=== PATIENT | female | born 1980 | race Caucasian/White ===

== ENCOUNTER 2016-09-26 13:02 | Emergency (ER) | payer OTHER ==
[~2016-09-26] VITALS: Ht 154.9 cm; Wt 94.9 kg
[~2016-09-26 13:02] MED LIST: CEPH500C PO
[2016-09-26 13:09] VITALS: TEMP 36.9; Ht 154.9 cm; Wt 94.9 kg
[2016-09-26] MEDS ORDERED: LISI10TA PO (13:53)
[2016-09-26] MEDS ORDERED: ASPI81TA28 PO (13:53)
[2016-09-26] MEDS ORDERED: SERT25TA PO (13:53)
[2016-09-26] MEDS ORDERED: SODIUM CHLORIDE 0.9% 500ML 500 ML IV STA (14:16)
[2016-09-26 14:26] LABS: BASO % 0.3 %; BASO ABS # 0.02 K/uL (0-0.2); COMPLETE YES; EOS % 3.5 %; HEMATOCRIT 43.1 % (37-47); IG% 0.1 %; LYMPH % 27.5 %; LYMPH ABS # 2.13 K/uL (1.2-3.4); MEAN CELL VOLUME 90.9 fL (80-100); MEAN CORPUSCULAR HEMOGLOBIN 31.9 pg (25-34); MEAN PLATELET VOLUME 12.7 fL (7.4-10.4); MONO % 7.1 %; NEUT % 61.5 %; PLATELET COUNT 220 K/uL (130-400); RED BLOOD COUNT 4.74 M/uL (4.2-5.4); WHITE BLOOD COUNT 7.75 K/uL (4.8-10.8)
[2016-09-26 14:32] LABS: ALT/SGPT 28 U/L (12-78); AST/SGOT 21 U/L (15-37); BLOOD UREA NITROGEN 13 mg/dl (7-18); BUN/CREATININE RATIO 15.1 (10-20); CALCIUM 8.5 mg/dl (8.5-10.1); CARBON DIOXIDE 22 mmol/L (21-32); CHLORIDE 107 mmol/L (98-107); CREATININE 0.86 mg/dl (0.60-1.20); GLUCOSE 82 mg/dl (70-99); POTASSIUM 4.6 mmol/L (3.5-5.1); SODIUM 141 mmol/L (136-145)
[2016-09-26 14:37] LABS: ALKALINE PHOSPHATASE 87 U/L (45-117)
--- NOTE | 2016-09-26 14:51 | DIAGNOSTIC IMAGING REPORT ---
HEAD CT NONCONTRAST CT DOSE: 537.48 mGy.cm HISTORY: EVALUATE WEAKNESS TECHNIQUE: Multiaxial CT images of the head were performed without the use of intravenous contrast. Automated exposure control was utilized for this study. Comparison: None. Findings: Trace fluid within the left sphenoid sinus. The remaining paranasal sinuses and mastoid air cells are clear. The calvarium and skull base are intact. The ventricles and sulci are within normal limits. There is no mass, hematoma, midline shift, or acute infarct. Impression: No acute intracranial abnormality. Electronically signed by: Jorge Rodriguez M.D. 09/26/2016 2:49 PM Dictated Date/Time: 09/26/2016 2:39 PM
[2016-09-26 14:52] LABS: URINE APPEARANCE CLEAR (CLEAR); URINE BILIRUBIN NEG (NEG); URINE COLOR YELLOW; URINE NITRITE NEG (NEG); URINE PH 5.5 (4.5-7.5); URINE SPECIFIC GRAVITY 1.018 (1.000-1.030); UROBILINOGEN NEG (NEG)
--- NOTE | 2016-09-26 14:55 | DIAGNOSTIC IMAGING REPORT ---
CHEST ONE VIEW PORTABLE HISTORY: Dizziness. EVALUATE WEAKNESS COMPARISON: None. FINDINGS: The lungs are clear. Cardiac silhouette is normal in size. No pleural effusions. No pneumothorax. Old, healed right anterior first and second rib fractures. IMPRESSION: No acute process. Electronically signed by: Jorge Rodriguez M.D. 09/26/2016 2:53 PM Dictated Date/Time: 09/26/2016 2:52 PM
[2016-09-26 15:05] LABS: MANUAL MICROSCOPIC REQUIRED? NO; REVIEW REQ? NO
[2016-09-26 15:49] VITALS: BP 142/93; PULSE 76; O2SAT 99
--- NOTE | 2016-09-26 20:53 | EMERGENCY ROOM VISIT NOTE ---
History Report prepared by Caroline: Brigette King Under the Supervision of: Dr. Ad Gonzalez D.O. First contact with patient: 13:49 Chief Complaint: DIZZY Stated Complaint: DIZZY, HIGH BLOOD PRESSURE Nursing Triage Summary: pt reports dizziness X 1 month, started on lisinopril 2 weeks ago and dizziness remains , intermittent R side cp and sob with and without exertion History of Present Illness The patient is a 36 year old female who presents to the Emergency Room with complaints of intermittent dizziness beginning 1 month ago. She notes one month ago she began to feel dizzy and notes her vision started to become blurry. She went to acute care in [place] and her blood pressure was noted to be high. She was instructed to take her blood pressure every day for the next five days and report back. She states each time, her blood pressure was high after resting for 20 minutes before measuring, noting that it was around 189/105 for some time. She went back to the acute care in [place] and was put on Lisinopril 10 mg per day. She has been on Lisinopril for 2 to 3 weeks now, and she notes her symptoms are getting worse. She admits to having a loss of appetite, vomiting when she eats, difficulty sleeping, sporadic dizziness, lightheadedness, nausea, and an occasional headache. She denies any fever, ringing in her ears, rhinorrhea, cough, sore throat, chest pain, shortness of breath, weakness in her arms, abdominal pain, or pain or burning during urination. The patient notes she is usually better when she is sitting and resting. She felt fine yesterday, but after sitting and resting after dinner, she began to feel dizzy and as if the room was spinning. She takes Zoloft and baby Aspirin. She notes the dizziness comes and goes but is more prominent with changes in position. It does completely resolve with rest. She denies any ringing in your ears. Source of History: patient Onset: 1 month ago Position: other (global) Quality: other (dizziness) Timing: intermittent Modifying Factors (Relieving): rest Associated Symptoms: + headache, + nausea, + vomiting, No abdominal pain, No chest pain, No cough, No fevers, No sorethroat, No urinary symptoms, No weakness Note: The patient notes having a loss of appetite, difficulty sleeping, and lightheadedness. The patient denies having ringing in her ears, and rhinorrhea. Review of Systems See HPI for pertinent positives & negatives. A total of 10 systems reviewed and were otherwise negative. Past Medical & Surgical Medical Problems: (1) History of hypertension Family History Diabetes mellitus Hypertension Social History Smoking Status: Current Every Day Smoker Smokeless Tobacco Use: Yes Alcohol Use: occasionally Housing Status: lives with significant other Current/Historical Medications Scheduled Aspirin (Aspirin Ec), 81 MG PO DAILY Lisinopril (Prinivil), 10 MG PO DAILY Sertraline (Zoloft), 25 MG PO DAILY Allergies Coded Allergies: No Known Allergies (Unverified , OTHER, 09/26/16) Physical Exam Vital Signs Date Time Temp Pulse Resp B/P Pulse Ox O2 Delivery O2 Flow Rate FiO2 09/26/16 15:49 76 18 142/93 99 Room Air 09/26/16 14:31 75 18 131/87 99 Room Air 09/26/16 13:38 73 124/90 80 150/105 94 137/100 09/26/16 13:22 78 09/26/16 13:09 36.9 80 18 151/108 97 Room Air Physical Exam GENERAL: Sitting up in bed, alert, well appearing, well nourished, no distress, non-toxic EYE EXAM: normal conjunctiva, PERRL and EOM's intact. Slight lag of the left eye (old per patient). OROPHARYNX: no exudate, no erythema, lips, buccal mucosa, and tongue normal and mucous membranes are moist EARS: TMs clear bilaterally. NECK: supple, no nuchal rigidity, no adenopathy, non-tender LUNGS: Clear to auscultation. Normal chest wall mechanics HEART: no murmurs, S1 normal and S2 normal ABDOMEN: abdomen soft, non-tender, normo-active bowel sounds, no masses, no rebound or guarding. BACK: Back is symmetrical on inspection and there is no deformity, no midline tenderness, no CVA tenderness. SKIN: no rashes and no bruising UPPER EXTREMITIES: upper extremities are grossly normal. LOWER EXTREMITIES: No pitting edema. NEURO EXAM: Normal sensorium, normal speech. No drift. Finger to nose intact. Gross sensation intact. Rapid alternating movements of upper extremities intact. Medical Decision & Procedures ER Provider Diagnostic Interpretation: Xray results per the radiologist and my interpretation. Other results have been interpreted by the radiologist and reviewed by me. HEAD CT NONCONTRAST Findings: Trace fluid within the left sphenoid sinus. The remaining paranasal sinuses and mastoid air cells are clear. The calvarium and skull base are intact. The ventricles and sulci are within normal limits. There is no mass, hematoma, midline shift, or acute infarct. Impression: No acute intracranial abnormality. Electronically signed by: Jorge Rodriguez M.D. 09/26/2016 2:49 PM Dictated Date/Time: 09/26/2016 2:39 PM CHEST ONE VIEW PORTABLE FINDINGS: The lungs are clear. Cardiac silhouette is normal in size. No pleural effusions. No pneumothorax. Old, healed right anterior first and second rib fractures. IMPRESSION: No acute process. Electronically signed by: Jorge Rodriguez M.D. 09/26/2016 2:53 PM Dictated Date/Time: 09/26/2016 2:52 PM Laboratory Results 09/26/16 13:40 Red Blood Count 4.74, Mean Corpuscular Volume 90.9, Mean Corpuscular Hemoglobin 31.9, Mean Corpuscular Hemoglobin Concent 35.0, Mean Platelet Volume 12.7, Neutrophils (%) (Auto) 61.5, Lymphocytes (%) (Auto) 27.5, Monocytes (%) (Auto) 7.1, Eosinophils (%) (Auto) 3.5, Basophils (%) (Auto) 0.3, Neutrophils # (Auto) 4.77, Lymphocytes # (Auto) 2.13, Monocytes # (Auto) 0.55, Eosinophils # (Auto) 0.27, Basophils # (Auto) 0.02 09/26/16 13:40 Test 09/26/16 13:40 09/26/16 14:21 White Blood Count 7.75 K/uL (4.8-10.8) Red Blood Count 4.74 M/uL (4.2-5.4) Hemoglobin 15.1 g/dL (12.0-16.0) Hematocrit 43.1 % (37-47) Mean Corpuscular Volume 90.9 fL (80-100) Mean Corpuscular Hemoglobin 31.9 pg (25-34) Mean Corpuscular Hemoglobin Concent 35.0 g/dl (32-36) Platelet Count 220 K/uL (130-400) Mean Platelet Volume 12.7 fL (7.4-10.4) Neutrophils (%) (Auto) 61.5 % Lymphocytes (%) (Auto) 27.5 % Monocytes (%) (Auto) 7.1 % Eosinophils (%) (Auto) 3.5 % Basophils (%) (Auto) 0.3 % Neutrophils # (Auto) 4.77 K/uL (1.4-6.5) Lymphocytes # (Auto) 2.13 K/uL (1.2-3.4) Monocytes # (Auto) 0.55 K/uL (0.11-0.59) Eosinophils # (Auto) 0.27 K/uL (0-0.5) Basophils # (Auto) 0.02 K/uL (0-0.2) RDW Standard Deviation 42.8 fL (36.4-46.3) RDW Coefficient of Variation 12.9 % (11.5-14.5) Immature Granulocyte % (Auto) 0.1 % Immature Granulocyte # (Auto) 0.01 K/uL (0.00-0.02) Urine Color YELLOW Urine Appearance CLEAR (CLEAR) Urine pH 5.5 (4.5-7.5) Urine Specific [place] 1.018 (1.000-1.030) Urine Protein NEG (NEG) Urine Glucose (UA) NEG (NEG) Urine Ketones NEG (NEG) Urine Occult Blood NEG (NEG) Urine Nitrite NEG (NEG) Urine Bilirubin NEG (NEG) Urine Urobilinogen NEG (NEG) Urine Leukocyte Esterase NEG (NEG) Anion Gap 12.0 mmol/L (3-11) Est Creatinine Clear Calc Drug Dose 96.0 ml/min Estimated GFR () 101.4 Estimated GFR (Non- 87.5 BUN/Creatinine Ratio 15.1 (10-20) Calcium Level 8.5 mg/dl (8.5-10.1) Total Bilirubin 0.2 mg/dl (0.2-1) Direct Bilirubin < 0.1 mg/dl (0-0.2) Aspartate Amino Transf (AST/SGOT) 21 U/L (15-37) Alanine Aminotransferase (ALT/SGPT) 28 U/L (12-78) Alkaline Phosphatase 87 U/L (45-117) Troponin I < 0.015 ng/ml (0-0.045) Total Protein 7.4 gm/dl (6.4-8.2) Albumin 3.9 gm/dl (3.4-5.0) Bedside Glucose 94 mg/dl (70-90) Laboratory results per my review. Medications Administered Medications (Trade) Dose Ordered Sig/[place] Route Start Time Stop Time Status Last Admin Dose Admin Sodium Chloride (Nss 500ml) 500 ml @ 999 mls/hr Q31M STAT IV 09/26/16 14:16 09/26/16 14:46 DC 09/26/16 14:16 999 MLS/HR ECG Indication: other (dizzy) Rate (beats per minute): 73 Rhythm: sinus rhythm Findings: other (normal axis; normal interval) ED Course ED COURSE: Vital signs were reviewed and showed hypertensive. The patients medical record was reviewed The above diagnostic studies were performed and reviewed. ED treatments and interventions as stated above. 1407: The patient was evaluated in room C7. A complete history and physical examination was performed. 1416: Ordered NSS 500 ml @ 999 mls/hr IV. 1600: Upon reevaluation, the patient is hemodynamically stable.I discussed my findings with the patient and she understands and agrees with the treatment plan. Based on the patients age, coexisting illnesses, exam and lab findings the decision to treat as an outpatient was made. The patient remained stable while under my care. The patient appeared well at the time of discharge. Medical Decision Differential Diagnosis includes but is not limited to dehydration, stroke, anemia, hypoglycemia, hyponatremia, hypernatremia, urinary tract infection, pneumonia, bronchitis, sepsis, gastroenteritis, additional abdominal pathology, metabolic abnormalities and infections. Patient is a 36-year-old female that presents the ER for weakness and high blood pressure. She also complains of intermittent dizziness as well which is worse with changing positions. Patient is completely neurologically intact on exam. CT head was negative. Labs show no significant a leukocytosis or anemia. BMP along with LFTs, bilirubin and lipase was unremarkable. Troponin was negative. She has no chest pain. UA was negative. Patient is currently following with her PCP for her hypertension. Blood pressures were systolically in the 130s to 140s. There is no cerebellar signs. I do not believe that her her dizziness is related to her hypertension. Patient no complaints while at bedside. She was discharged follow-up with her PCP. Discussed with Pt concerning signs and symptoms to watch out for. Pt was instructed to follow up with their PCP and discussed with the patient their option to return to the ED at anytime for persistent or worsening symptoms. The appropriate anticipatory guidance and out-patient management, including indications for return to the emergency department, were explained at length to the patient and understood. Impression Primary Impression: Dizzy Additional Impressions: Weak HTN (hypertension) Scribe Attestation The scribe's documentation has been prepared under my direction and personally reviewed by me in its entirety. I confirm that the note above accurately reflects all work, treatment, procedures, and medical decision making performed by me. Departure Information Dispostion Home / Self-Care Referrals Leigh Ann Hidalgo PA-C (PCP) Patient Instructions ED Dizziness UKO, ED HTN Established, My [facility] Additional Instructions Please follow up with your primary care doctor with in the next 24 hours. Any worsening of your symptoms, please return to the ED immediately. This includes fevers greater than 100.4, weakness or numbness in arms or legs, change in vision, difficulty ambulating, or any other concerning signs or symptoms from your standpoint. Please follow up with your primary care doctor in regards to your high blood pressure. Problem Qualifiers Additional Impressions: HTN (hypertension) Hypertension type: unspecified secondary hypertension Qualified Codes: I15.9 - Secondary hypertension, unspecified
== END 2016-09-26 16:09 | disposition home or self-care (01) ==
LOC: C.EDB 13:03 → C.EDC 16:09
DX: I10 Essential (primary) hypertension (principal); R42 Dizziness and giddiness; F17.200 Nicotine dependence, unspecified, uncomplicated; Z79.82 Long term (current) use of aspirin; Z79.899 Other long term (current) drug therapy; Z83.3 Family history of diabetes mellitus; Z82.49 Family history of ischemic heart disease and other diseases of the circulatory system

== ENCOUNTER 2018-04-18 14:18 | Emergency (ER) | payer OTHER ==
[~2018-04-18] VITALS: Ht 162.6 cm; Wt 101.4 kg
[~2018-04-18 14:18] MED LIST changes: +ASPI81TA28 PO; -CEPH500C PO; +LISI10TA PO; +SERT25TA PO
[2018-04-18 14:23] VITALS: TEMP 37; Ht 162.6 cm; Wt 101.4 kg
[2018-04-18 14:30] VITALS: O2SAT 100
[2018-04-18] MEDS ORDERED: MECLIZINE HCL 25 MG TAB PO STA (15:11)
[2018-04-18] MEDS ORDERED: SODIUM CHLORIDE 0.9% 1000ML 1,000 ML IV STA (15:11)
[2018-04-18 15:36] LABS: BASO % 0.2 %; BASO ABS # 0.02 K/uL (0-0.2); HEMATOCRIT 40.6 % (37-47); HEMOGLOBIN 13.9 g/dL (12.0-16.0); IG# 0.03 K/uL (0.00-0.02); LYMPH % 17.6 %; LYMPH ABS # 1.76 K/uL (1.2-3.4); MEAN CELL VOLUME 94.6 fL (80-100); MEAN CORPUSCULAR HEMOGLOBIN 32.4 pg (25-34); MEAN CORPUSCULAR HGB CONC 34.2 g/dl (32-36); MEAN PLATELET VOLUME 12.7 fL (7.4-10.4); NEUT % 73.9 %; NEUT ABS # 7.38 K/uL (1.4-6.5); PLATELET COUNT 194 K/uL (130-400); RED CELL DISTRIBUTION WIDTH CV 12.9 % (11.5-14.5); RED CELL DISTRIBUTION WIDTH SD 44.1 fL (36.4-46.3); WHITE BLOOD COUNT 9.99 K/uL (4.8-10.8)
[2018-04-18 15:48] LABS: PTT PATIENT 25.7 SECONDS (21.0-31.0)
--- NOTE | 2018-04-18 15:54 | DIAGNOSTIC IMAGING REPORT ---
HEAD WITHOUT CONTRAST (CT) CT DOSE: 710.65 mGycm HISTORY: Mental status change EVALUATE ALTERED MENTAL STATUS/WEAKNESS TECHNIQUE: Multiaxial CT images of the head were performed without the use of intravenous contrast. A dose lowering technique was utilized adhering to the principles of ALARA. Comparison: 09/26/2016 Findings: The paranasal sinuses and mastoid air cells are clear. The calvarium and skull base are intact. The ventricles and sulci are within normal limits. There is no mass, hematoma, midline shift, or acute infarct. Impression: No acute intracranial abnormality. The above report was generated using voice recognition software. It may contain grammatical, syntax or spelling errors. Electronically signed by: Hamilton Bejarano M.D. 04/18/2018 3:52 PM Dictated Date/Time: 04/18/2018 3:50 PM
[2018-04-18 16:04] LABS: ALBUMIN 3.6 gm/dl (3.4-5.0); ALKALINE PHOSPHATASE 83 U/L (45-117); ALT/SGPT 37 U/L (12-78); AST/SGOT 30 U/L (15-37); BLOOD UREA NITROGEN 12 mg/dl (7-18); CALCIUM 8.5 mg/dl (8.5-10.1); CARBON DIOXIDE 23 mmol/L (21-32); CREATININE 0.68 mg/dl (0.60-1.20); GLUCOSE 93 mg/dl (70-99); PHOSPHORUS 2.8 mg/dl (2.5-4.9); POTASSIUM 4.4 mmol/L (3.5-5.1); SODIUM 138 mmol/L (136-145); TOTAL PROTEIN 7.1 gm/dl (6.4-8.2)
[2018-04-18] MEDS ORDERED: LISI-725 PO (16:31)
[2018-04-18] MEDS ORDERED: SERT50TA PO (16:31)
[2018-04-18 16:41] VITALS: BP 152/93; PULSE 70; O2SAT 99
[2018-04-18] MEDS ORDERED: MECL1TAB42 PO (16:45)
--- NOTE | 2018-04-18 22:28 | EMERGENCY ROOM VISIT NOTE ---
History First contact with patient: 14:50 (Von Laguna PA) First contact with patient: 16:19 (Josue Jarrett M.D.) Chief Complaint: SYNCOPE (NEAR SYNCOPE) Stated Complaint: DIZZINESS/NEAR SYNCOPE/VERTIGO Nursing Triage Summary: pt arrives via ALS from Work per ALS pt had a near syncope episode at work pt reports she was talking to an insurance company, she states she felt like she was slurring her words pt reports she was dizzy and light headed and the room began to spin she reports the sensation comes and goes, "I feel drunk, but I'm not." (Von Laguna PA) History of Present Illness The patient is a 38 year old female who presents to the Emergency Room with complaints of sudden onset of dizzy/vertigo symptoms at work today. 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 The patient reports that she was talking to an insurance company on the phone when she felt like she suddenly started to slur her words. Shortly thereafter, she reported that the room started to spin on her. She became lightheaded and nauseated. She did not notice any change in vision. The patient was concerned that she may pass out, so she laid down on the floor. The windsmith reports that her speech was normal, but looked flush. The windsmith checked her pulse and reported that it was normal. The patient reports that her symptoms did improve while laying on the ground. When she attempted to sit up, the room started to spin again. The office then called 911 where she was transported here via ALS ambulance for further evaluation. The patient reports that her symptoms seem to be worsened with movement of the head and sitting up. The patient did not notice any chest pain, palpitations, shortness of breath, headache or nausea. She denies any prior history of vertigo or other neurologic conditions. She did not notice any paresthesias/numbness of the face or extremities. She did not notice any difficulty with swallowing. The patient thought that her symptoms may be secondary to anxiety as well. She denies any pain. (Von Laguna PA) Review of Systems HEENT: Denies visual problems, hearing loss, tinnitus. Denies difficulty swallowing or oral lesions. PULMONARY: Denies cough, shortness of breath, sputum production or hemoptysis. CARDIOVASCULAR: Denies chest pain, palpitations, dyspnea on exertion, orthopnea or peripheral edema. GASTROINTESTINAL: Denies diarrhea, constipation, nausea, vomiting, or abdominal pain. GENITOURINARY: Denies dysuria, frequency, urgency or nocturia. NEUROLOGIC: Denies history of epilepsy, CVA, TIA or chronic headaches. MUSCULOSKELETAL: Denies history of joint tenderness/swelling. SKIN: Denies rashes or lesions. PSYCHIATRIC: Denies history of depression or mental illness. ENDOCRINE: Denies history of diabetes or thyroid disorders. (Von Laguna PA) Past Medical/Surgical History Medical Problems: (1) History of hypertension (2) Tobacco Use Disorder Surgical Problems: (1) No history of previous surgery (Josue Jarrett M.D.) Family History Diabetes mellitus FH: heart disease Hypertension (Von Laguna PA) Diabetes mellitus FH: heart disease Hypertension (Josue Jarrett M.D.) Social History Smoking Status: Never Smoker Alcohol Use: occasionally Marital Status: single Housing Status: lives with significant other Occupation Status: employed (Von Laguna PA) Current/Historical Medications Scheduled Lisinopril (Zestril), 20 MG PO DAILY Sertraline (Zoloft), 50 MG PO DAILY Scheduled PRN Meclizine Hcl (Meclizine Hcl), 1 TAB PO TID PRN for Vertigo Physical Exam Vital Signs Date Time Temp Pulse Resp B/P (MAP) Pulse Ox O2 Delivery O2 Flow Rate FiO2 04/18/18 16:41 70 18 152/93 99 Room Air 04/18/18 15:21 67 18 156/95 97 Room Air 04/18/18 14:30 100 Room Air 04/18/18 14:30 71 04/18/18 14:23 37.0 65 16 171/119 98 Room Air (Josue Jarrett M.D.) Physical Exam CONSTITUTIONAL: Healthy and well nourished. Alert and oriented X 3 with positive affect. GCS 15. Patient does not appear in any acute distress. HEENT: Normocephalic, atraumatic. Pupils equal, round and reactive. No scleral icterus, conjunctival injection or pallor. Ears are clear without serous or air-fluid levels. Nares are clear. No nystagmus noted. NECK: Full active range of motion without discomfort. No JVD or carotid bruits. No nuchal rigidity. RESPIRATORY: Clear to auscultation bilaterally with no wheezing, crackles, rhonchi or stridor. CARDIOVASCULAR: Regular rate and rhythm with no murmurs, rubs or gallops. GASTROINTESTINAL: Bowel sounds present in all quadrants. Soft and nontender to palpation without palpable pulsatile masses. Negative CVA tenderness. MUSCULOSKELETAL: Full range of motion of all joints without discomfort. Equal handgrip bilaterally. No tenderness to palpation through the axial spine. INTEGUMENTARY: No rash or other significant dermatologic conditions noted. HEMATOLOGIC: No ecchymosis or petechiae noted. NEUROLOGIC: Cranial nerves II-XII grossly intact. No focal neurologic deficits noted. Facial sensations are intact. Negative pronator drift. Normal fast alternating hand movements. (Von Laguna PA) Medical Decision & Procedures ER Provider Diagnostic Interpretation: My interpretation of an ECG shows a normal sinus rhythm of [address] elevation or other conduction abnormalities. Noncontrast CT of the head does not show any intracranial hemorrhage, midline shift or mass-effect. Radiologist report is as follows: HEAD WITHOUT CONTRAST (CT) CT DOSE: 710.65 mGycm HISTORY: Mental status change EVALUATE ALTERED MENTAL STATUS/WEAKNESS TECHNIQUE: Multiaxial CT images of the head were performed without the use of intravenous contrast. A dose lowering technique was utilized adhering to the principles of ALARA. Comparison: 09/26/2016 Findings: The paranasal sinuses and mastoid air cells are clear. The calvarium and skull base are intact. The ventricles and sulci are within normal limits. There is no mass, hematoma, midline shift, or acute infarct. Impression: No acute intracranial abnormality. (Von Laguna PA) Laboratory Results 04/18/18 15:22 Red Blood Count 4.29, Mean Corpuscular Volume 94.6, Mean Corpuscular Hemoglobin 32.4, Mean Corpuscular Hemoglobin Concent 34.2, Mean Platelet Volume 12.7, Neutrophils (%) (Auto) 73.9, Lymphocytes (%) (Auto) 17.6, Monocytes (%) (Auto) 6.0, Eosinophils (%) (Auto) 2.0, Basophils (%) (Auto) 0.2, Neutrophils # (Auto) 7.38, Lymphocytes # (Auto) 1.76, Monocytes # (Auto) 0.60, Eosinophils # (Auto) 0.20, Basophils # (Auto) 0.02 04/18/18 15:22 Test 04/18/18 14:39 04/18/18 15:11 04/18/18 15:22 Urine Color YELLOW Urine Appearance CLEAR (CLEAR) Urine pH 5.0 (4.5-7.5) Urine Specific [place] 1.026 (1.000-1.030) Urine Protein NEG (NEG) Urine Glucose (UA) NEG (NEG) Urine Ketones NEG (NEG) Urine Occult Blood NEG (NEG) Urine Nitrite NEG (NEG) Urine Bilirubin NEG (NEG) Urine Urobilinogen NEG (NEG) Urine Leukocyte Esterase NEG (NEG) Urine Opiates Screen NEG (NEG) Urine Methadone, Qualitative NEG (NEG) Urine Barbiturates NEG (NEG) Urine Phencyclidine (PCP) Level NEG (NEG) Ur Amphetamine/Methamphetamine NEG (NEG) MDMA (Ecstasy) Screen NEG (NEG) Urine Benzodiazepines Screen NEG (NEG) Urine Cocaine Metabolite NEG (NEG) Urine Marijuana (THC) NEG (NEG) White Blood Count 9.99 K/uL (4.8-10.8) Red Blood Count 4.29 M/uL (4.2-5.4) Hemoglobin 13.9 g/dL (12.0-16.0) Hematocrit 40.6 % (37-47) Mean Corpuscular Volume 94.6 fL (80-100) Mean Corpuscular Hemoglobin 32.4 pg (25-34) Mean Corpuscular Hemoglobin Concent 34.2 g/dl (32-36) Platelet Count 194 K/uL (130-400) Mean Platelet Volume 12.7 fL (7.4-10.4) Neutrophils (%) (Auto) 73.9 % Lymphocytes (%) (Auto) 17.6 % Monocytes (%) (Auto) 6.0 % Eosinophils (%) (Auto) 2.0 % Basophils (%) (Auto) 0.2 % Neutrophils # (Auto) 7.38 K/uL (1.4-6.5) Lymphocytes # (Auto) 1.76 K/uL (1.2-3.4) Monocytes # (Auto) 0.60 K/uL (0.11-0.59) Eosinophils # (Auto) 0.20 K/uL (0-0.5) Basophils # (Auto) 0.02 K/uL (0-0.2) RDW Standard Deviation 44.1 fL (36.4-46.3) RDW Coefficient of Variation 12.9 % (11.5-14.5) Immature Granulocyte % (Auto) 0.3 % Immature Granulocyte # (Auto) 0.03 K/uL (0.00-0.02) Activated Partial Thromboplast Time 25.7 SECONDS (21.0-31.0) Partial Thromboplastin Ratio 1.0 Anion Gap 7.0 mmol/L (3-11) Est Creatinine Clear Calc Drug Dose 131.3 ml/min Estimated GFR () 129.5 Estimated GFR (Non- 111.7 BUN/Creatinine Ratio 17.9 (10-20) Calcium Level 8.5 mg/dl (8.5-10.1) Phosphorus Level 2.8 mg/dl (2.5-4.9) Magnesium Level 1.8 mg/dl (1.8-2.4) Total Bilirubin 0.2 mg/dl (0.2-1) Direct Bilirubin < 0.1 mg/dl (0-0.2) Aspartate Amino Transf (AST/SGOT) 30 U/L (15-37) Alanine Aminotransferase (ALT/SGPT) 37 U/L (12-78) Alkaline Phosphatase 83 U/L (45-117) Total Creatine Kinase 61 U/L (26-192) Troponin I < 0.015 ng/ml (0-0.045) Total Protein 7.1 gm/dl (6.4-8.2) Albumin 3.6 gm/dl (3.4-5.0) Thyroid Stimulating Hormone (TSH) 0.664 uIu/ml (0.300-4.500) (Josue Jarrett M.D.) Medications Administered Medications (Trade) Dose Ordered Sig/Milton Route Start Time Stop Time Status Last Admin Dose Admin Sodium Chloride 1,000 ml @ 999 mls/hr Q1H1M STAT IV 04/18/18 15:11 04/18/18 16:11 DC 04/18/18 15:30 999 MLS/HR Meclizine HCl (Antivert Tab) 25 mg NOW STAT PO 04/18/18 15:11 04/18/18 15:29 DC 04/18/18 15:30 25 MG (Josue Jarrett M.D.) ED Course Patient history and physical exam were performed. Nurse's notes were reviewed. Vital signs were reviewed, showing a blood pressure 171/119. The patient reports that she did not take her blood pressure medicine this morning. Stroke scale score was 0. Patient did not have any concerning physical exam findings. IV access was established, and labs were drawn. The patient was hydrated with a liter normal saline. ECG and portable chest x-ray were normal. Noncontrast CT of the head was also performed and normal. Labs were reviewed to show no evidence for anemia or electrolyte abnormality. The patient is euthyroid. Troponin is normal. Urinalysis is unremarkable with a negative urine . Urine toxicology was also negative. The patient was initially administered meclizine 25 mg orally. After her workup was completed, she did report relief of her symptoms. She was able to set up and ambulate without any symptoms. The patient was advised that her symptoms are likely secondary to vertigo. The patient will be provided a prescription for meclizine. She was encouraged to follow-up with her PCP for close reevaluation and management. She was encouraged to rest in an upright position, and avoid sudden movements. She was instructed to return to the emergency department for any worsening symptoms, chest pain, fever or other concerning neurologic symptoms. The patient was happy with plan of care, and voiced understanding of all discharge instructions. I did encourage the patient to continue taking her lisinopril, and have her PCP recheck her blood pressure with her office follow-up. (Von Laguna PA) Medical Decision Patient history and physical exam findings are most consistent with benign positional vertigo. She did have improvement with meclizine. The patient was hydrated with normal saline as well, although the patient does not clinically appear dehydrated. Still of anemia, thyroid dysfunction, electrolyte abnormality or acute cardiopulmonary etiologies. Clinical exam is not consistent with CVA. The case was discussed with Dr. Jarrett, ED attending physician, who agrees with workup and plan of care. (Von Laguna PA) Medication Reconcilliation Current Medication List: was personally reviewed by me (Von Laguna PA) Blood Pressure Screening Patient's blood pressure: Elevated blood pressure Blood pressure disposition: Referred to PCP (Von Laguna PA) Impression Primary Impression: Benign positional vertigo Additional Impression: Elevated blood pressure reading with diagnosis of hypertension Departure Information Prescriptions Meclizine Hcl (MECLIZINE HCL) 25 Mg Tab 1 TAB PO TID Y for Vertigo for 7 Days, #21 TAB Prov: Von Laguna PA 04/18/18 Referrals No Doctor, Assigned (PCP) Patient Instructions My [facility] Problem Qualifiers Primary Impression: Benign positional vertigo Laterality: unspecified laterality Qualified Codes: H81.10 - Benign paroxysmal vertigo, unspecified ear
== END 2018-04-18 17:00 | disposition home or self-care (01) ==
LOC: EDBD 14:18 → C.EDA 14:20
DX: H81.10 Benign paroxysmal vertigo, unspecified ear (principal); I10 Essential (primary) hypertension; F17.200 Nicotine dependence, unspecified, uncomplicated; Z79.899 Other long term (current) drug therapy

== ENCOUNTER 2024-04-20 16:10 | Observation (INO) ==
[2024-04-20 16:44] LABS: Basophils # (auto) 0.04 K/uL (0.00-0.20); Basophils % (auto) 0.5 %; Eosinophils # (auto) 0.23 K/uL (0.00-0.50); Eosinophils % (auto) 2.9 %; Hematocrit (blood only) 42.3 % (37.0-47.0); Hemoglobin 14.3 g/dl (12.0-16.0); Immature Granulocytes # (auto) 0.02 K/uL (0.01-0.20); Immature Granulocytes % (auto) 0.3 %; Lymphocytes # (auto) 2.15 K/uL (1.20-3.40); Lymphocytes % (auto) 27.2 %; Mean Corpuscular Hemoglobin 31.4 pg (25.0-34.0); Mean Corpuscular Hgb Conc 33.8 g/dL (32.0-36.0); Mean Corpuscular Volume 92.8 fL (80.0-100.0); Mean Platelet Volume 12.3 fL (9.4-12.4); Monocytes # (auto) 0.41 K/uL (0.11-0.59); Monocytes % (auto) 5.2 %; Neutrophils # (auto) 5.06 K/uL (1.40-6.50); Neutrophils % (auto) 63.9 %; Platelet Count 243 K/uL (130-400); RDW Standard Deviation 43.9 fL (36.4-46.3); Red Blood Count 4.56 M/uL (4.20-5.40); White Blood Count 7.91 K/ul (4.8-10.8)
--- NOTE | 2024-04-20 17:05 | XRay Report ---
XR chest 1V not portable HISTORY: Chest pain, nonspecific COMPARISON: Chest CTA 04/07/2019. FINDINGS: The lungs are clear. Cardiac silhouette is normal in size. No pleural effusions. No pneumot horax. IMPRESSION: No acute process. ACT 112: Negative or not required by law. Electronically signed by: Jorge Rodriguez M.D. 04/20/2024 5:04 PM
[2024-04-20 17:07] LABS: Albumin Globulin Ratio 1.6 (0.9-2); Albumin Level 4.6 gm/dl (3.4-5.0); BUN Creatinine Ratio 20.6 (10-20); Bilirubin,Total 0.4 mg/dl (0.2-1.0); Calcium 9.9 mg/dl (8.6-10.3); Est GFR (African American) 124.2 ml/min; Est GFR (Non-African American) 107.1 ml/min; Globulin 2.8 gm/dl (2.5-4.0); Potassium 3.5 mmol/L (3.5-5.1); Total Protein 7.4 gm/dl (6.0-8.3)
[2024-04-20 17:21] LABS: INR 0.9 (0.9-1.1); Partial Thromboplastin Ratio 0.9; Partial Thromboplastin Time 25 Seconds (21-31); Prothrombin Time 10.2 Seconds (9.0-12.0)
[2024-04-20] MEDS: OPTIRAY 320 125ml IV ONE (17:23)
--- NOTE | 2024-04-20 18:31 | CT Scan Report ---
CHEST CTA for PULMONARY ARTERIES CT DOSE: 849.88 mGy.cm HISTORY: Atypical chest pain. Bradycardia. TECHNIQUE: Multiaxial CT images of the chest were performed following the intravenous administration of contrast to evaluate the pulmonary arteries. 3D/Maximal intensity projection images were also obta ined. Sagittal and coronal reformations were also reviewed. A dose lowering technique was utilized a dhering to the principles of ALARA. COMPARISON STUDY: Chest CTA 04/07/2019. FINDINGS: There is a normal caliber thoracic aorta with no evidence for dissection. There is no evide nce for pulmonary embolus. No pleural effusions. No pneumothorax. The liver and spleen are unremarkab le. No mediastinal or hilar lymphadenopathy. The central airways are patent. Stable benign 2 mm nodul e within the lingula on image 120. This was partially obscured by motion artifact on the prior study. Otherwise, the lungs are clear. IMPRESSION: No evidence for a pulmonary embolus. ACT 112: Negative or not required by law. Electronically signed by: Jorge Rodriguez M.D. 04/20/2024 6:28 PM
[2024-04-20] MEDS ORDERED: hydrALAZINE HCL 20 MG/ML VIAL IV PRN (19:09)
--- NOTE | 2024-04-20 19:11 | History & Physical Report ---
Date of Service April 20, 2024 Assessment & Plan (1) HTN (hypertension): Plan Chest tightness, rule out ACS Patient presents with chest tightness/discomfort associated with nausea and lightheadedness since 3 days [employer]PUTER SYSTEM[employer]. Intermittent. Patient also reports feeling of skipping heartbeat. Patient was recently evaluated in [place] [facility], see HPI. Admitting troponin WNL, admitting EKG without acute ST or T changes. Trend troponin, get echo, get orthostatic vitals, telemetry monitoring, cardiology consult. N.p.o. midnight. History of GERD: Patient takes famotidine and esomeprazole at home, continue, denies any increase in her symptoms but appears that her symptoms are not well controlled, will increase the dose of famotidine to twice daily. Will likely benefit from GI eval as OP. Uncontrolled hypertension: Continue home medication, as needed hydralazine, will avoid beta-lala currently due to bradycardia noted in telemetry monitoring. DVT prophylaxis: Heparin subcu Full code History of Present Illness Chief Complaint: Chest tightness Primary Care Provider: Cr Chakraborty MD 44-year-old lady with PMH of panic attack, HTN, GERD presented to the ED with complaint of not feeling well/chest tightness. Patient reports she visited [place] [facility] on Sunday because of the same, her blood pressure was noted to be high and pulse rate noted to be low. She was given medications and her vitals improved and she was discharged home. Patient reports she continued to feel not good over Sunday with some lightheadedness and further feeling bad and increasing lightheadedness today prompted her to come to the ED. Patient denies shortness of breath, reports chest tightness, reports feeling skipping heart beat. Patient does complain of burning sensation up to her back of throat which is usual for her given her history of GERD. Patient denies febrile illness, reports some nausea since last Sunday, denies vomiting. Denies flulike illness. Reports no acute changes in appetite, bowel and bladder habits. Patient reports smoking 1 packs/week, since age 17. Reports drinking up to 6 packs of beer 3-4 times a week, denies recreational drug use. Full code as per my discussion with the patient. Medication discussed with the patient in detail, patient did not take her Coreg in the morning because of recent incident of bradycardia at [place] [facility] for patient. Patient takes lisinopril hydrochlorothiazide 20-25 mg every morning, famotidine 20 mg at bedtime, amlodipine 2.5 mg at bedtime, dicyclomine 10 mg 30 min before meals up to 4 times a day, Coreg 3.125 twice daily, esomeprazole 40 mg every morning, citalopram 10 mg every morning, hydroxyzine 50 mg every 6 hours as needed for anxiety. Allergies Allergy/AdvReac Type Severity Reaction Status Date / Time No Known Allergies Allergy Verified 12/25/19 23:06 Home Medications Medication Instructions Recorded Confirmed Type cholecalciferol (vitamin D3) 125 5,000 unit PO DAILY 04/07/19 12/25/19 History mcg (5,000 unit) capsule lisinopril 20 mg tablet 20 mg PO DAILY 04/07/19 12/25/19 History meclizine 12.5 mg tablet 12.5 mg PO QID PRN Dizziness 04/07/19 12/25/19 History dexlansoprazole 30 mg 0 mg PO DAILY 12/25/19 12/25/19 History capsule,biphase delayed release (Dexilant) Past Med/Surg History Problem List (Updated 01/09/20 @ 00:02 by Sagar Arteaga) History of cholecystectomy Vitamin D deficiency GERD (gastroesophageal reflux disease) History of hypertension Dizzy (Acute) HTN (hypertension) (Acute) Weak (Acute) Social History Smoking Status: Current every day smoker Tobacco Type: Cigarettes Preferred Language: [place] Feels Safe at Home: Yes Review of Systems Review of Systems: Negative otherwise mentioned in HPI. Physical Exam Physical Exam: GENERAL: Alert and oriented x3. NAD, on RA. HEENT: No pallor, no icterus. Pupils equal, round and reactive to light. Oral mucosa moist. NECK: No JVD, no neck masses. HEART: S1 and S2 heard. Regular rate and rhythm. No murmur, no gallop. RESPIRATORY SYSTEM: Normal AP diameter. No accessory muscle use. No wheezing, no crackles. ABDOMEN: Soft, bowel sounds present, nontender, no distention. CENTRAL NERVOUS SYSTEM: No facial droop. Speech is clear. Obeys simple commands. Moves extremities. EXTREMITIES: No edema, no erythema seen. Results & Data Results & Data Vital Signs (Past 12 Hours) Vital Signs Temp Pulse Pulse Resp BP BP Pulse Ox 04/20/24 18:08 55 L 20 157/91 H 100 04/20/24 17:04 43 L 04/20/24 16:12 36.9 C 79 19 191/113 H 99 O2 Del Method 04/20/24 18:08 Room Air 04/20/24 17:04 04/20/24 16:12 Room Air
[2024-04-20] MEDS ORDERED: POLYETHYLENE (MIRALAX) 17 GM PACK PO PRN (19:12)
[2024-04-20] MEDS ORDERED: MAGNESIUM HYDROXIDE SUSP 30 ML UDC PO PRN (19:12)
[2024-04-20] MEDS ORDERED: NITROGLYCERIN SL 0.4 MG/TAB TAB SL PRN (19:12)
[2024-04-20] MEDS ORDERED: ALUMINUM/MAGNESIUM SUSP 30 ML UDC PO PRN (19:12)
[2024-04-20] MEDS ORDERED: DICYCLOMINE HCL 10 MG CAP PO PRN (19:45)
[2024-04-20] MEDS ORDERED: hydrOXYzine HCl 25 MG TAB PO PRN (19:45)
[2024-04-20] MEDS: amLODIPine BESYLATE 5 MG TAB PO STA (22:21)
[2024-04-20] MEDS: FAMOTIDINE 20 MG TAB PO STA (22:21)
[2024-04-20] MEDS: HEPARIN SOD 5,000 UNIT/0.5 ML VIAL SQ STA (22:23)
[2024-04-20] MEDS: ACETAMINOPHEN 325 MG TAB PO PRN (23:26)
--- NOTE | 2024-04-21 00:09 | Emergency Department Note ---
History of Present Illness General Chief Complaint: Cardiac Assessment Stated Complaint: PULSE DROPPING TO 40, NAUSEA, SKIPPING BEATS Time Seen by Provider: 04/20/24 16:58 History of Present Illness Provider Complaint: + palpitations Onset (ago): 2 day(s) Duration: + Intermittent Maximum Pain Intensity: 6 Context: + occurred during rest Arrhythmia history: no on anti-coagulants Associated symptoms: + chest pain (Tightness), + shortness of breath, + near- syncope and + anxiety; no nausea HPI narrative: Patient reports that she feels like her heart rate is going well and then goes high. Patient states she went to an outside emergency department in [place] and was discharged. Patient states her symptoms have been worsening. Home Medications Medication Instructions Recorded Confirmed Type amlodipine 2.5 mg tablet 2.5 mg PO QAM 04/20/24 04/20/24 History carvedilol 3.125 mg tablet 3.125 mg PO BID 04/20/24 04/20/24 History citalopram 10 mg tablet 10 mg PO QAM 04/20/24 04/20/24 History dicyclomine 10 mg capsule 10 mg PO ACHS 04/20/24 04/20/24 History esomeprazole magnesium 40 mg 40 mg PO DAILYBB 04/20/24 04/20/24 History capsule,delayed release famotidine 20 mg tablet 20 mg PO HS 04/20/24 04/20/24 History hydroxyzine HCl 50 mg tablet 50 mg PO Q6 PRN Anxiety 04/20/24 04/20/24 History lisinopril 20 1 tab PO QAM 04/20/24 04/20/24 History mg-hydrochlorothiazide 25 mg tablet Allergies Allergy/AdvReac Type Severity Reaction Status Date / Time No Known Allergies Allergy Verified 04/20/24 19:54 Past Med/Surg History Problem List (Updated 04/21/24 @ 00:09 by Diogenes Valdez MD) Chest pain (Acute) Vitamin D deficiency GERD (gastroesophageal reflux disease) Dizzy (Acute) HTN (hypertension) (Acute) Weak (Acute) Medical History Anxiety History of hypertension Surgical History History of cholecystectomy Social History Smoking Status: Current every day smoker Tobacco Type: Cigarettes Second Hand Exposure: No; Do You Dip or Chew Tobacco: No; Tobacco Cessation Education Requested by Patient: No Hx Alcohol Use: Yes Alcohol type: beer Hx Substance Use: No Preferred Language: Grenadian Communication Ability: Effective Christian Science Healer Required: No Beliefs That Will Affect Care: None Current Living Situation: Spouse Other Information That Helps Us Care for You: No Feels Safe at Home: Yes Assistive Devices: None Physical Exam 2 Vital Signs: Vital Signs - 24 hr 04/20/24 16:12 04/20/24 17:04 04/20/24 18:08 Temperature 36.9 C Temperature Source Temporal Artery Sc an Pulse Rate 79 43 L Pulse Rate [Apical ] 55 L Pulse Rhythm [Apic al] Regular Pulse Strength [Ap ical] Normal Respiratory Rate 19 20 Respiratory Effort / Characteristics Non-Labored Sponta neous Non-Labored Sponta neous Respiratory Depth Normal Normal Respiratory Patter n Regular Blood Pressure 191/113 H Blood Pressure [Le ft Arm] 157/91 H Blood Pressure Alejandra n 139 Blood Pressure Alejandra n [Left Arm] 113 Blood Pressure Pos ition [Left Arm] Lying Pulse Oximetry 99 100 Oxygen Delivery Me thod Room Air Room Air Sepsis Recent Feve r Within 48 Hours No Sepsis New/Unexpla ined Change in Men kerry Status N/A Sepsis Action Take n by Nursing No Action Required Physical Exam: Physical Exam GENERAL: oriented to person, place, and time. appears well-developed and well- nourished. HENT: Exam performed. - Head: Normocephalic and atraumatic. EYES: Conjunctivae and EOM are normal. Right eye exhibits no discharge. Left eye exhibits no discharge. No scleral icterus. NECK: Normal range of motion. Neck supple. No JVD present. CV: Normal rate, regular rhythm, normal heart sounds and intact distal pulses. There is no peripheral edema. Palpable radial pulses bue. PULM/CHEST: Effort normal and breath sounds normal. No respiratory distress. No stridor. no wheezes. no rales. ABD: The abdomen is soft. There is no tenderness. NEURO: Motor and sensation grossly intact. SKIN: Skin is warm and dry. He is not diaphoretic. PSYCH: normal mood and affect. Behavior is normal. Judgment and thought content normal. Course Course 1658: The patient was evaluated in room C5. A complete history and physical exam was performed Cardiac monitoring: An order was placed for continuous cardiac monitoring. The monitor shows a rate of 80 with sinus rhythm interpreted by me 1840: Vital signs stable. Labs and imaging are unremarkable. Patient be admitted to the [facility] hospitalist team for chest pain rule out ACS Administered Medications Acetaminophen (Acetaminophen 325 Mg Tab) 650 mg PO Q4H PRN PRN Reason: Pain or Fever Stop: 05/20/24 19:11 Last Admin: 04/20/24 23:26 Dose: 650 mg Documented By: DEVAN Discontinued Medications Amlodipine Besylate (Amlodipine Besylate 5 Mg Tab) 2.5 mg PO ONE STA Stop: 04/20/24 21:50 Last Admin: 04/20/24 22:21 Dose: 2.5 mg Documented By: WILLIAMS Famotidine (Famotidine 20 Mg Tab) 20 mg PO ONE STA Stop: 04/20/24 21:50 Last Admin: 04/20/24 22:21 Dose: 20 mg Documented By: WILLIAMS Heparin Sodium (Porcine) (Heparin Sod 5,000 Unit/0.5 Ml Vial) 5,000 units SQ ONE STA Stop: 04/20/24 21:50 Last Admin: 04/20/24 22:23 Dose: 5,000 units Documented By: WILLIAMS Ioversol (Optiray 320 125ml) 119 ml IV ONCE ONE Stop: 04/20/24 17:24 Last Admin: 04/20/24 17:23 Dose: 1 ml Documented By: ALIZE Medical Decision Making Laboratory Data Attestation: I reviewed the patient's lab results. 04/20/24 16:14 04/20/24 16:14 Lab Results 04/20/24 Range/Units 16:14 WBC 7.91 (4.8-10.8) K/ul RBC 4.56 (4.20-5.40) M/uL Hgb 14.3 (12.0-16.0) g/dl Hct 42.3 (37.0-47.0) % MCV 92.8 (80.0-100.0) fL MCH 31.4 (25.0-34.0) pg MCHC 33.8 (32.0-36.0) g/dL RDW Std Deviation 43.9 (36.4-46.3) fL RDW Coeff of [place] 13.0 (11.5-14.5) % Plt Count 243 (130-400) K/uL MPV 12.3 (9.4-12.4) fL Immature Gran % (Auto) 0.3 % Neut % (Auto) 63.9 % Lymph % (Auto) 27.2 % [place] % (Auto) 5.2 % Eos % (Auto) 2.9 % Baso % (Auto) 0.5 % Neut # (Auto) 5.06 (1.40-6.50) K/uL Lymph # (Auto) 2.15 (1.20-3.40) K/uL [place] # (Auto) 0.41 (0.11-0.59) K/uL Eos # (Auto) 0.23 (0.00-0.50) K/uL Baso # (Auto) 0.04 (0.00-0.20) K/uL Immature Gran # (Auto) 0.02 (0.01-0.20) K/uL PT 10.2 (9.0-12.0) Seconds INR 0.9 (0.9-1.1) APTT 25 (21-31) Seconds PTT Ratio 0.9 Sodium 137 (136-145) mmol/L Potassium 3.5 (3.5-5.1) mmol/L Chloride 101 (98-107) mmol/L Carbon Dioxide 26 (21-32) mmol/L Anion Gap 10 (3-11) BUN 14 (6-23) mg/dl Creatinine 0.68 (0.6-1.2) mg/dl Est Cr Clr Drug Dosing 112.0 ml/min Est GFR ( Amer) 124.2 ml/min Est GFR (Non-Af Amer) 107.1 ml/min BUN/Creatinine Ratio 20.6 H (10-20) Glucose 98 (70-99(Fasting)) mg/dl Calcium 9.9 (8.6-10.3) mg/dl Total Bilirubin 0.4 (0.2-1.0) mg/dl AST 22 (13-39) U/L ALT 24 (7-52) U/L Alkaline Phosphatase 90 (34-104) U/L Troponin I High Sens 4.0 (0-14) pg/ml Total Protein 7.4 (6.0-8.3) gm/dl Albumin 4.6 (3.4-5.0) gm/dl Globulin 2.8 (2.5-4.0) gm/dl Albumin/Globulin Ratio 1.6 (0.9-2) Imaging Data Attestation: I personally reviewed and interpreted this imaging study as follows: My Impression: Chest x-ray negative. Airway clear. No pneumothorax. No consolidation. No cardiomegaly or cephalization.. No free air under the diaphragm. No fractures of the skeletal structures. Radiologist's Impression: Chest X-Ray 04/20/24 16:15 XR chest 1V not portable HISTORY: Chest pain, nonspecific COMPARISON: Chest CTA 04/07/2019. FINDINGS: The lungs are clear. Cardiac silhouette is normal in size. No pleural effusions. No pneumothorax. IMPRESSION: No acute process. ACT 112: Negative or not required by law. Electronically signed by: Jorge Rodriguez M.D. 04/20/2024 5:04 PM Chest CTA 04/20/24 17:08 CHEST CTA for PULMONARY ARTERIES CT DOSE: 849.88 mGy.cm HISTORY: Atypical chest pain. Bradycardia. TECHNIQUE: Multiaxial CT images of the chest were performed following the intravenous administration of contrast to evaluate the pulmonary arteries. 3D/Maximal intensity projection images were also obtained. Sagittal and coronal reformations were also reviewed. A dose lowering technique was utilized adhering to the principles of ALARA. COMPARISON STUDY: Chest CTA 04/07/2019. FINDINGS: There is a normal caliber thoracic aorta with no evidence for dissection. There is no evidence for pulmonary embolus. No pleural effusions. No pneumothorax. The liver and spleen are unremarkable. No mediastinal or hilar lymphadenopathy. The central airways are patent. Stable benign 2 mm nodule within the lingula on image 120. This was partially obscured by motion artifact on the prior study. Otherwise, the lungs are clear. IMPRESSION: No evidence for a pulmonary embolus. ACT 112: Negative or not required by law. Electronically signed by: Jorge Rodriguez M.D. 04/20/2024 6:28 PM ECG Data Attestation: I personally reviewed and interpreted this ECG as follows: Additional Comments: EKG #1 at 1617: Sinus rhythm with rate of 70. ME QRS and QTc intervals are within normal limits. No ST elevation or ST depression EKG #2 at 1703: Sinus rhythm with rate of 77. ME 136 QRS [address] elevation or ST depression. [facility] Narrative 1658: The patient was evaluated in room C5. A complete history and physical exam was performed Cardiac monitoring: An order was placed for continuous cardiac monitoring. The monitor shows a rate of 80 with sinus rhythm interpreted by me 1840: Vital signs stable. Labs and imaging are unremarkable. [facility] Impression & Plan Chest pain Discharge Plan Visit Data Chief Complaint: Cardiac Assessment Stated Complaint: PULSE DROPPING TO 40, NAUSEA, SKIPPING BEATS ED Provider: Diogenes Valdez Discharge Problem: Chest pain Patient Disposition: Admitted As Inpatient Discharge Instructions Interventions: ED Discharge Assessment Last Done: 04/20/24 22:13 Discharge Problem: Chest pain Qualifiers: Chest pain type: unspecified Qualified Code(s): R07.9 - Chest pain, unspecified
[2024-04-21 03:24] VITALS: TEMP 98.1
[2024-04-21 07:43] LABS: Hematocrit (blood only) 38.1 % (37.0-47.0); Hemoglobin 13.1 g/dl (12.0-16.0); Mean Corpuscular Hemoglobin 31.3 pg (25.0-34.0); Mean Corpuscular Hgb Conc 34.4 g/dL (32.0-36.0); Mean Corpuscular Volume 90.9 fL (80.0-100.0); Mean Platelet Volume 12.7 fL (9.4-12.4); Platelet Count 210 K/uL (130-400); RDW Coefficient of Variation 12.8 % (11.5-14.5); RDW Standard Deviation 42.5 fL (36.4-46.3); Red Blood Count 4.19 M/uL (4.20-5.40); White Blood Count 5.91 K/ul (4.8-10.8)
[2024-04-21 07:55] LABS: BUN Creatinine Ratio 27.1 (10-20); Calcium 8.7 mg/dl (8.6-10.3); Creatinine Clr Calc Pharmacy 131.1 ml/min; Est GFR (African American) 130.1 ml/min; Est GFR (Non-African American) 112.3 ml/min; Magnesium 1.8 mg/dl (1.7-2.4); Phosphorus 4.8 mg/dl (2.5-4.9); Potassium 3.5 mmol/L (3.5-5.1)
[2024-04-21 07:57] LABS: Troponin I High Sensitivity 3.3 pg/ml (0-14)
[2024-04-21] MEDS: HEPARIN SOD 5,000 UNIT/0.5 ML VIAL SQ SCH (08:35)
[2024-04-21] MEDS: LISINOPRIL/HCTZ 20/25MG 1 TAB PO SCH (08:35)
[2024-04-21] MEDS: FAMOTIDINE 20 MG TAB PO SCH (08:36)
[2024-04-21] MEDS: CITALOPRAM 20 MG TAB PO SCH (08:36)
[2024-04-21] MEDS: PANTOprazole 40 MG TAB PO SCH (08:36)
--- NOTE | 2024-04-21 09:02 | Hospitalist Progress Note ---
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 Intermittent. Patient also reports feeling of skipping heartbeat. Serial troponins within normal limits EKG showed sinus bradycardia; no significant ST and T wave changes Echocardiogram shows EF of 55 to 60%, left ventricular wall motion is normal with no significant valvular pathology Trend troponin, get echo, get orthostatic vitals, telemetry monitoring, cardiology consult. N.p.o. midnight. History of GERD: Patient takes famotidine and esomeprazole at home. Pepcid dose increased to twice daily Uncontrolled hypertension: Continue home medication ; avoid beta-lala currently due to bradycardia noted in EKG DVT prophylaxis: Heparin subcu Full code Please note the above document was generated using voice recognition software. It may contain grammatical, syntax or spelling errors. Any formal questions or concerns about the content, text or information contained within the body of this dictation should be directly addressed to the provider for clarification Admission and Anticipated Discharge Date Admission Date: April 20, 2024 Subjective Patient seen and examined at bedside. Comfortable; not in distress. Denies fever, chills, chest pain, shortness of breath, abdominal pain or urinary symptoms. No significant overnight events Review of Systems Review of Systems: All systems reviewed & are unremarkable except as noted in Subjective Physical Exam Physical Exam: GENERAL: Alert and oriented x3. NAD, on RA. HEENT: No pallor, no icterus. Pupils equal, round and reactive to light. Oral mucosa moist. NECK: No JVD, no neck masses. HEART: S1 and S2 heard. Regular rate and rhythm. No murmur, no gallop. RESPIRATORY SYSTEM: Normal AP diameter. No accessory muscle use. No wheezing, no crackles. ABDOMEN: Soft, bowel sounds present, nontender, no distention. CENTRAL NERVOUS SYSTEM: No facial droop. Speech is clear. Obeys simple commands. Moves extremities. EXTREMITIES: No edema, no erythema seen. Results & Data Results & Data Vital Signs (Past 12 Hours) Vital Signs Temp Pulse Pulse Resp BP Pulse Ox O2 Del Method 04/21/24 07:21 36.7 C 58 L 16 117/76 97 Room Air 04/21/24 03:23 36.7 C 55 L 17 143/89 H 97 Room Air 04/21/24 01:15 54 L 04/20/24 23:28 36.9 C 58 L 20 147/92 H 98 Room Air 04/20/24 22:13 57 L 16 97 Room Air 04/20/24 21:14 54 L 16 159/78 H 96 Room Air 04/20/24 21:11 50 L
--- NOTE | 2024-04-21 09:06 | Electrocardiogram Report ---
Test Reason : Blood Pressure : */* mmHG Vent. Rate : 58 BPM Atrial Rate : 58 BPM P-R Int : 138 ms QRS Dur : 84 ms QT Int : 468 ms P-R-T Axes : 44 38 58 degrees QTcB Int : 459 ms Sinus bradycardia Nonspecific T wave abnormality Anteroseptal leads Abnormal ECG When compared with ECG of 20-Apr-2024 17:03, No significant change was found Confirmed by Bob Maria ([id number]) on 04/21/2024 9:05:52 AM Referred By: REFERRED SELF Confirmed By: Bob Maria
--- NOTE | 2024-04-21 09:06 | Electrocardiogram Report ---
Test Reason : Blood Pressure : */* mmHG Vent. Rate : 70 BPM Atrial Rate : 70 BPM P-R Int : 126 ms QRS Dur : 82 ms QT Int : 400 ms P-R-T Axes : 41 9 21 degrees QTcB Int : 432 ms Normal sinus rhythm Nonspecific T wave abnormality Anteroseptal leads Abnormal ECG When compared with ECG of 25-Dec-2019 21:42, No significant change was found Confirmed by Bob Maria ([id number]) on 04/21/2024 9:06:12 AM Referred By: Confirmed By: Bob Maria
--- NOTE | 2024-04-21 09:12 | Electrocardiogram Report ---
Test Reason : Blood Pressure : */* mmHG Vent. Rate : 77 BPM Atrial Rate : 77 BPM P-R Int : 136 ms QRS Dur : 78 ms QT Int : 424 ms P-R-T Axes : 45 15 36 degrees QTcB Int : 479 ms Normal sinus rhythm Nonspecific T wave abnormality Anteroseptal leads Abnormal ECG When compared with ECG of 20-Apr-2024 16:17, No significant change was found Confirmed by Bob Maria ([id number]) on 04/21/2024 9:11:57 AM Referred By: REFERRED SELF Confirmed By: Bob Maria
[2024-04-21 10:16] LABS: Thyroid Stimulating Hormone 2.832 uIu/ml (0.300-4.500)
--- NOTE | 2024-04-21 10:27 | Cardiology Consultation ---
Date of Consultation April 21, 2024 Assessment & Plan (1) Atypical chest pain: (2) HTN (hypertension): (3) Near syncope: (4) Blocked premature atrial contraction: Plan 44-year-old female presents with atypical chest discomfort, intermittent lightheadedness with evidence of sinus bradycardia and blocked PACs on telemetry. Agree with holding beta-lala therapy at this time. Blood pressure controlled with combination of calcium channel lala, ALEKS inhibitor, and calcium sparing diuretic. TSH within normal limits, and negative Lyme screen noted. Lipid panel pending at this time. Consider outpatient caustic purification operator if symptoms persist despite discontinuation of beta-lala therapy. Recommend exercise stress echo for further evaluation of chest discomfort. Patient agreeable to proceed. Further recommendations pending results. Thank you for allow me to participate in the care of your patient. History of Present Illness Reason for Consultation: Chest tightness, skipped beats Requesting Physician: Dr. Mike Attending Physician: Garrett Minor MD History of Present Illness 44-year-old female presented to the emergency department due to lightheadedness, and chest discomfort. Notes chest heaviness dating back several years. Disc omfort is relatively constant, not positional, without known alleviating, or aggravating factors. Often attributes chest discomfort to stress, anxiety, and panic attacks. Evaluated in the emergency department at [place] on Sunday due to the symptoms. Discharge from the ER. Reports low heart rate and lightheadedness. Voices concern regarding heart rate dropping into the 40s with associated lightheadedness. No overt syncope. Telemetry reveals sinus bradycardia in the 50s with episodes of blocked PACs and heart rate dropping into the 40s. Appears episodes of blocked PACs occurs during sleep. Patient works full-time as an philosophy professor. Denies any functional limitations, however, notes significant stress. Smokes approximately 1 pack of cigarettes per week and consumes 3-4 alcoholic beverages nightly depending on stress levels. Denies exertional chest pain or unusual shortness of breath. No orthopnea, PND, or lower extremity edema. Denies personal history of coronary disease, congestive heart failure, or medic fever as a child. Hypertensive for several years treated with Zestoretic, amlodipine, and carvedilol. Admits to taking carvedilol on both Sunday and Sunday morning despite recommendations from [place] ER to discontinue this medication in the setting of bradycardia. Last dose of carvedilol 04/20/2024 in the AM. Allergies Allergy/AdvReac Type Severity Reaction Status Date / Time No Known Allergies Allergy Verified 04/20/24 19:54 Home Medications Medication Instructions Recorded Confirmed Type amlodipine 2.5 mg tablet 2.5 mg PO QAM 04/20/24 04/20/24 History carvedilol 3.125 mg tablet 3.125 mg PO BID 04/20/24 04/20/24 History citalopram 10 mg tablet 10 mg PO QAM 04/20/24 04/20/24 History dicyclomine 10 mg capsule 10 mg PO ACHS 04/20/24 04/20/24 History esomeprazole magnesium 40 mg 40 mg PO DAILYBB 04/20/24 04/20/24 History capsule,delayed release famotidine 20 mg tablet 20 mg PO HS 04/20/24 04/20/24 History hydroxyzine HCl 50 mg tablet 50 mg PO Q6 PRN Anxiety 04/20/24 04/20/24 History lisinopril 20 1 tab PO QAM 04/20/24 04/20/24 History mg-hydrochlorothiazide 25 mg tablet Patient History Medical History Anxiety History of hypertension Surgical History History of cholecystectomy Social History Smoking Status: Current every day smoker Tobacco Type: Cigarettes Second Hand Exposure: No; Do You Dip or Chew Tobacco: No; Tobacco Cessation Education Requested by Patient: No Hx Alcohol Use: Yes Alcohol type: beer Hx Substance Use: No Preferred Language: Yi Communication Ability: Effective Franchise Business Consultant Required: No Beliefs That Will Affect Care: None Current Living Situation: Spouse Other Information That Helps Us Care for You: No Feels Safe at Home: Yes Assistive Devices: None Review of Systems Review of Systems: All systems reviewed & are unremarkable except as noted in Subjective Physical Exam Constitutional: well nourished and + obese; no acute distress Respiratory: no respiratory distress, no labored breathing and no retractions Auscultation: no crackles, no rales, no rhonchi and no wheezes Cardiovascular: Rate/Rhythm: regular rate and regular rhythm Heart Sounds: normal S1 and normal S2; no murmur Vessels: radial pulses present; no JVD and no carotid bruit Extremities: no edema Gastrointestinal (Abdomen): Inspection/Auscultation: abdomen normal to inspection and normal bowel sounds; abdomen not distended Percussion/Pa lpation: abdomen soft; abdomen nontender, no guarding and abdomen not rigid Neurologic: CN's II-XI intact bilaterally and moves all extremities; no focal motor deficits Results & Data Vital Signs (Past 12 Hours) Vital Signs Temp Pulse Pulse Resp BP Pulse Ox O2 Del Method 04/21/24 09:05 53 L 04/21/24 07:21 36.7 C 58 L 16 117/76 97 Room Air 04/21/24 03:23 36.7 C 55 L 17 143/89 H 97 Room Air 04/21/24 01:15 54 L 04/20/24 23:28 36.9 C 58 L 20 147/92 H 98 Room Air Laboratory Results Cardiac Enzymes 04/20/24 04/20/24 04/21/24 Range/Units 16:14 19:56 00:20 AST 22 (13-39) U/L Troponin I High Sens 4.0 3.2 3.6 (0-14) pg/ml 04/21/24 Range/Units 06:52 AST (13-39) U/L Troponin I High Sens 3.3 (0-14) pg/ml Coagulation 04/20/24 Range/Units 16:14 PT 10.2 (9.0-12.0) Seconds APTT 25 (21-31) Seconds Lipids 04/21/24 Range/Units 06:52 Triglycerides Cancelled Cholesterol Cancelled HDL Cholesterol Cancelled Cholesterol/HDL Ratio Cancelled CBC 04/20/24 04/21/24 Range/Units 16:14 06:52 WBC 7.91 5.91 (4.8-10.8) K/ul RBC 4.56 4.19 L (4.20-5.40) M/uL Hgb 14.3 13.1 (12.0-16.0) g/dl Hct 42.3 38.1 (37.0-47.0) % Plt Count 243 210 (130-400) K/uL Neut # (Auto) 5.06 (1.40-6.50) K/uL Lymph # (Auto) 2.15 (1.20-3.40) K/uL [place] # (Auto) 0.41 (0.11-0.59) K/uL Eos # (Auto) 0.23 (0.00-0.50) K/uL Baso # (Auto) 0.04 (0.00-0.20) K/uL Comprehensive Metabolic Panel 04/20/24 04/21/24 Range/Units 16:14 06:52 Sodium 137 137 (136-145) mmol/L Potassium 3.5 3.5 (3.5-5.1) mmol/L Chloride 101 101 (98-107) mmol/L Carbon Dioxide 26 28 (21-32) mmol/L BUN 14 16 (6-23) mg/dl Creatinine 0.68 0.59 L (0.6-1.2) mg/dl Glucose 98 97 (70-99(Fasting)) mg/dl Calcium 9.9 8.7 (8.6-10.3) mg/dl AST 22 (13-39) U/L ALT 24 (7-52) U/L Alkaline Phosphatase 90 (34-104) U/L Total Protein 7.4 (6.0-8.3) gm/dl Albumin 4.6 (3.4-5.0) gm/dl Intake and Output 04/20/24 04/21/24 04/21/24 22:59 06:59 14:59 Other: Weight 94.6 kg 95.4 kg Weight Measurement Method Chair Scale Built in [facility] (2) HTN (hypertension) Hypertension type: primary hypertension Qualified Code(s): I10 - Essential ( primary) hypertension
[2024-04-21 11:14] LABS: Chol HDL Ratio 3.5 (0-5)
--- NOTE | 2024-04-21 12:22 | Discharge Summary ---
Date of Service April 21, 2024 Admission HPI Per Admitting Provider 44-year-old lady with PMH of panic attack, HTN, GERD presented to the ED with complaint of not feeling well/chest tightness. Patient reports she visited [facility] on Sunday because of the same, her blood pressure was noted to be high and pulse rate noted to be low. She was given medications and her vitals improved and she was discharged home. Patient reports she continued to feel not good over Sunday with some lightheadedness and further feeling bad and increasing lightheadedness today prompted her to come to the ED. Patient denies shortness of breath, reports chest tightness, reports feeling skipping heart beat. Patient does complain of burning sensation up to her back of throat which is usual for her given her history of GERD. Patient denies febrile illness, reports some nausea since last Sunday, denies vomiting. Denies flulike illness. Reports no acute changes in appetite, bowel and bladder habits. Patient reports smoking 1 packs/week, since age 17. Reports drinking up to 6 packs of beer 3-4 times a week, denies recreational drug use. Full code as per my discussion with the patient. Medication discussed with the patient in detail, patient did not take her Coreg in the morning because of recent incident of bradycardia at [facility] for patient. Patient takes lisinopril hydrochlorothiazide 20-25 mg every morning, famotidine 20 mg at bedtime, amlodipine 2.5 mg at bedtime, dicyclomine 10 mg 30 min before meals up to 4 times a day, Coreg 3.125 twice daily, esomeprazole 40 mg every morning, citalopram 10 mg every morning, hydroxyzine 50 mg every 6 hours as needed for anxiety. Admission Exam Per Admitting Provider GENERAL: Alert and oriented x3. NAD, on RA. HEENT: No pallor, no icterus. Pupils equal, round and reactive to light. Oral mucosa moist. NECK: No JVD, no neck masses. HEART: S1 and S2 heard. Regular rate and rhythm. No murmur, no gallop. RESPIRATORY SYSTEM: Normal AP diameter. No accessory muscle use. No wheezing, no crackles. ABDOMEN: Soft, bowel sounds present, nontender, no distention. CENTRAL NERVOUS SYSTEM: No facial droop. Speech is clear. Obeys simple commands. Moves extremities. EXTREMITIES: No edema, no erythema seen. Principal Diagnosis Hypertensive urgency Sinus bradycardia Chest pain, ACS ruled out Discharge Exam GENERAL: Alert and oriented x3. NAD, on RA. HEENT: No pallor, no icterus. Pupils equal, round and reactive to light. Oral mucosa moist. NECK: No JVD, no neck masses. HEART: S1 and S2 heard. Regular rate and rhythm. No murmur, no gallop. RESPIRATORY SYSTEM: Normal AP diameter. No accessory muscle use. No wheezing, no crackles. ABDOMEN: Soft, bowel sounds present, nontender, no distention. CENTRAL NERVOUS SYSTEM: No facial droop. Speech is clear. Obeys simple commands. Moves extremities. EXTREMITIES: No edema, no erythema seen. 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 Intermittent. Patient also reports feeling of skipping heartbeat. Serial high sensitivity troponin within normal limits EKG showed sinus bradycardia; no significant ST and T wave changes Echocardiogram shows EF of 55 to 60%, left ventricular wall motion is normal with no significant valvular pathology Stress echocardiogram was done; no echocardiographic or EKG evidence of myocardial ischemia having heart rate adequate for diagnostic purposes. Coreg was stopped; patient's amlodipine was increased from 2.5 mg at night to 5 mg. She was recommended to check her daily blood pressure at home, make a log and follow-up with her primary care doctor. Please note the above document was generated using voice recognition software. It may contain grammatical, syntax or spelling errors. Any formal questions or concerns about the content, text or information contained within the body of this dictation should be directly addressed to the provider for clarification Total Time Total Time Spent Total Time Spent (In Minutes): 35 Total Time Includes: Examination of the Patient, Discharge Planning, Medication Reconciliation, Communication With Other Providers and Other Discharge Plan Discharge Items Patient Disposition: Home - Self-Care Reason For Visit: CHEST TIGHTNESS Activity: Resume your previous activity Non-emergency contact: Primary Care Provider Call non-emergency contact if: you have any medication questions and your symptoms worsen Follow-up/Referrals: Cr Chakraborty MD [Primary Care Provider] - (Date & Time 04/24/2024 7:40 AM Provider Ruddy Allen MD Department Family Medicine [facility] ) Diet: Regular Addtl Attending Provider Instructions: You were admitted to the hospital due to high blood pressure and low heart rate. You underwent evaluation by cardiology with echocardiogram and stress echocardiogram. Your stress echocardiogram showed normal heart function; your heart rate increased with exercise. Following recommendation are made: 1) Stop taking Coreg. 2) Amlodipine dose has been increased from 2.5 mg to 5 mg at night. A new prescription is sent to the pharmacy Please start to measure your blood pressure at home on a sitting position with both feet on the ground and your arm rested daily at the same time. Rest for 5 minutes prior to measuring her blood pressure. An appointment with your primary care doctor will be made for you; please follow-up with them to manage your blood pressure. Pending Studies at Discharge: No Stand-Alone Forms: My [facility] [employer], Smoking Cessation Medications and DC Order Prescriptions: New amlodipine 5 mg tablet 5 mg PO HS Qty: 30 0RF Continued dicyclomine 10 mg capsule 10 mg PO ACHS MDD 4 capsules esomeprazole magnesium 40 mg Capsule,Delayed Release(Dr/Ec) 40 mg PO DAILYBB lisinopril-hydrochlorothiazide 20-25 mg Tablet 1 tab PO QAM citalopram 10 mg Tablet 10 mg PO QAM hydroxyzine HCl 50 mg Tablet 50 mg PO Q6 PRN (Reason: Anxiety) famotidine 20 mg Tablet 20 mg PO HS Discontinued amlodipine 2.5 mg Tablet 2.5 mg PO QAM carvedilol 3.125 mg Tablet 3.125 mg PO BID Rx Instructions: must administer with a meal/food Discharge Orders: Discharge Order (Routine); Ordered 04/21/24 Ordered By: Garrett Minor Admission Data Admit Date/Time: 04/20/24 19:12 Attending Provider: Garrett Minor Admit Provider: Latoya Mike Primary Care Provider: Cr Chakraborty Other Providers: Latoya Mike; Merly Harris; Sridhar Mackay; Simeon Hernandez; Salvador Grimes; Vasquez Quinn; Hamilton Nevarez; Katt Gudino; Brandee Deleon; Tonja Calix; Merly Roth; Kwame Amanda; Zachary Pedroza; Mary Brewster; Christina Silva; Joann Perales; Viviana Castano; Willem Messina; Jeniffer Gregory Other Interventions: Discharge Summary Assessment (RN) Last Done: 04/21/24 12:28
[2024-04-21 12:30] VITALS: BP 150/90; PULSE 72; RESP 18; O2SAT 98
[2024-04-21] MEDS ORDERED: amLODIPine BESYLATE 5 MG TAB PO SCH (21:00)
== END 2024-04-21 13:38 | disposition home or self-care (01) ==
LOC: 2E 16:10 → ED 16:10 → SUATTDRO 19:12 → 2E 22:13